=== PATIENT | male | born 1975 | race Caucasian/White ===

== ENCOUNTER 2019-01-09 22:32 | Emergency (ER) | payer MEDICAID ==
[~2019-01-09] VITALS: Ht 180.3 cm; Wt 66.9 kg
[~2019-01-09 22:32] MED LIST: NO HOME MEDS
[2019-01-09] MEDS ORDERED: CefTRIAXone 2gm/D5W 50ml 50 ML IV ONE (23:25)
[2019-01-09 23:28] LABS: BASOPHILS # (AUTO) 0.1 X10'3 (0-0.2); BASOPHILS % (AUTO) 0.6 % (0-1); EOSINOPHILS # (AUTO) 0.1 X10'3 (0-0.9); EOSINOPHILS % (AUTO) 1.2 % (0-6); HEMATOCRIT 36.8 % (42.0-52.0); HEMOGLOBIN 12.7 g/dl (14.0-17.9); LYMPHOCYTES # (AUTO) 1.2 X10'3 (1.1-4.8); MEAN CORPUSCULAR HEMOGLOBIN 31.2 PG (27.0-31.0); MEAN CORPUSCULAR HGB CONC 34.4 g/dL (33.0-36.5); MEAN CORPUSCULAR VOLUME 90.7 FL (78-98); MEAN PLATELET VOLUME 8.2 FL (7.4-10.4); MONOCYTES # (AUTO) 0.9 X10'3 (0-0.9); MONOCYTES % (AUTO) 8.2 % (2-12); NEUTROPHILS # (AUTO) 8.4 X10'3 (1.8-7.7); PLATELET COUNT 208 X10'3 (140-440); RED BLOOD COUNT 4.06 X10'6 (4.70-6.10); RED CELL DISTRIBUTION WIDTH 13.2 % (11.5-14.5); WHITE BLOOD COUNT 10.6 X10'3 (4.5-11.0)
[2019-01-09 23:44] LABS: ALANINE AMINOTRANSFERASE 52 U/L (12-78); ALBUMIN 3.4 G/DL (3.4-5.0); ALBUMIN/GLOBULIN RATIO 0.9 (1.1-1.5); ALKALINE PHOSPHATASE 71 IU/L (46-116); ANION GAP 6 (8-16); ASPARTATE AMINO TRANSFERASE 34 U/L (10-37); BILIRUBIN,TOTAL 0.9 MG/DL (0.1-1.0); BLOOD UREA NITROGEN 13 MG/DL (7-18); BUN/CREATININE RATIO 11.8 (5.4-32.0); CALCIUM 8.5 MG/DL (8.5-10.1); CHLORIDE 100 MMOL/L (99-107); GLUCOSE 116 MG/DL (70-104); POTASSIUM 3.6 MMOL/L (3.5-5.1); SODIUM 135 MMOL/L (135-145); TOTAL PROTEIN 7.2 G/DL (6.4-8.2); eGFR 73 ML/MIN
[2019-01-09 23:57] LABS: MAGNESIUM 1.7 MG/DL (1.5-2.4)
[2019-01-10 00:02] LABS: PARTIAL THROMBOPLASTIN TIME 36 SECONDS (22-32)
[2019-01-10] MEDS ORDERED: normal saline 1000ML IV soln IVB ONE (00:05)
[2019-01-10 00:33] VITALS: BP 104/81
[2019-01-10] MEDS ORDERED: SULF1TAB49 PO (00:39)
[2019-01-10] MEDS ORDERED: CEPH500C5 PO (00:39)
[2019-01-10] MEDS ORDERED: ketorolac trometh. 30mg/ml inj. IV ONE (00:40)
--- NOTE | 2019-01-10 00:42 | NUR ---
dr. blanco talking with pt. reports after he receives the iv abs and ivf bolus, he will be discharged with po abs. pt reprots pain and will be given toradol iv.
== END 2019-01-10 01:13 | disposition home or self-care (01) ==
LOC: ER 22:33
DX: L03.115 Cellulitis of right lower limb (principal); F12.90 Cannabis use, unspecified, uncomplicated; F15.90 Other stimulant use, unspecified, uncomplicated; F11.90 Opioid use, unspecified, uncomplicated; J45.909 Unspecified asthma, uncomplicated; Z59.0 Homelessness; Z79.2 Long term (current) use of antibiotics
CPT/HCPCS: 36415; 71045; 80053; 83605; 83735; 84145; 85025; 85610; 85730; 87040; 93005; 96365; 96375; 99284; J0696; J1885; J7030